=== PATIENT | female | born 1995 | race Caucasian/White ===

== ENCOUNTER 2020-04-16 10:31 | Inpatient (IN) | payer BC ==
[2020-04-16] VITALS (29 sets, daily range): BP systolic 96–145; BP diastolic 53–96; PULSE 68–130; TEMP 97.7–99.1
[~2020-04-16] VITALS: Ht 162.6 cm; Wt 61.4 kg
--- NOTE | 2020-04-16 11:15 | NUR ---
Patient onto unit via bed escorted by to CLERK OF WORKS x2. Patient was seen in ER for pain and spotting, found to be 5cm dilated with a fundal height of 36 per ER physician. on unit, aware of patient. Patients sister Emily at bedside. Patient reports unknown last menstrual period - "It was sometime at the end of the year." Patient states she had positive test "at the end of January." Patient has not been seen for care. Denies any medical complications or surgical history. EFMs on, VS taken. SVE by this RN. Assessment completed. Patient reports good movement. Patient states she started spotting and having pain this morning around 0900, denies any leaking of fluid.
[2020-04-16 11:16] LABS: COLLECTION METHOD CLEAN CATCH
[2020-04-16 11:19] LABS: BASO % 0.2 % (0.0-2.0); EOS # 0.1 (0.0-0.7); EOS % 0.5 % (0-4.0); GRAN # 8.2 (1.4-6.5); GRAN % 79.6 % (42.2-75.2); HEMOGLOBIN 11.2 g/dl (12.5-16.0); LYMPH # 1.5 (1.2-3.4); LYMPH % 14.7 % (20.0-51.0); MEAN CELL VOLUME 80 fl (80.0-100.0); MEAN CORPUSCULAR HEMOGLOBIN 26 pg (27.0-31.0); MEAN CORPUSCULAR HGB CONC 32 g/dl (33.0-37.0); MEAN PLATELET VOLUME 13.4 fl (7.4-10.4); MONO # 0.5 (0.1-0.6); MONO % 4.5 % (1.7-9.3); PLATELET COUNT 161 K/mm3 (130-400); RED BLOOD COUNT 4.38 M/mm3 (4.10-5.30); REDCELL DISTRIBUTION WIDTH-CV 13.3 % (11.5-14.5)
[2020-04-16 11:25] LABS: MUCOUS Present /lpf; PH 7 (5-8); URINE APPEARANCE Hazy; URINE BACTERIA Rare /hpf; URINE BILIRUBIN Negative (NEGATIVE); URINE BLOOD 3+ (NEGATIVE); URINE COLOR Yellow; URINE GLUCOSE Negative (NEGATIVE); URINE KETONE Negative (NEGATIVE); URINE LEUKOCYTE ESTERASE 2+ (NEGATIVE); URINE NITRATE Negative (NEGATIVE); URINE PROTEIN(semi-quant) 2+ (NEGATIVE); URINE UROBILINOGEN Negative (NEGATIVE)
--- NOTE | 2020-04-16 11:25 | NUR ---
to bedside to evaluate patient. SVE /-1, BBOW per provider. Ultrasound verifies vertex position and approximately 36 weeks gestation per provider. Plan of care discussed with patient, questions answered. Patient requesting epidural placement.
--- NOTE | 2020-04-16 12:05 | NUR ---
Report from Otoniel Saldana RN and care of patient assumed. Albania Moreau CRNA at bedside for epidural placement. 1210- Patient assisted to sit on edge of bed for epidural. 1217- Single shot via epidural per Albania Moreau CRNA. Patient tolerates well. 1219- Epidural test dose via Albania Moreau CRNA. Patient tolerates well. No adverse reactions noted. 1225- Patient repositioned LL following epidural placement. Updated on plan of care and safety. 1240- Dr. Garcia on unit, updated on patient assessment.
[2020-04-16 12:10] LABS: TRICYCLIC ANTIDEPRESS URINE NEGATIVE
--- NOTE | 2020-04-16 12:39 | NUR ---
CYNDEE recieved consult for patient with no care at 36 weeks. CYNDEE unable to complete assessment at this time. Patient active LDR. Will schedule to assess 04/17/2020
[2020-04-16 12:59] LABS: HIV 1/2 Antibodies Non-Reactive; HIV-1p24 Antigen Non-Reactive
--- NOTE | 2020-04-16 14:10 | NUR ---
1410- Dr. Garcia at bedside. Discussing possible AROM, patient agrees. 1412- AROM by Dr. Garcia for moderate amount of clear fluid. SVE per provider . Pericare given. Patient updated on plan of care to labor down and recheck when patient feels pressure. Patient repositioned LL.
--- NOTE | 2020-04-16 14:35 | NUR ---
Physician at bedside. Discussing plan of care to begin pushing. Patient denies questions. Barnard catheter removed prior to pushing and pericare performed. 1440- Patient begins pushing with contractions with RN and physician at bedside. 1450- Patient repositioned RL with left leg in stirrup to promote descent. Orders to remain in this position for ten minutes, then LL with stirrup, then sitting upright. Plan to begin pushing again following repositioning efforts. Patient comfortable with epidural.
--- NOTE | 2020-04-16 15:05 | NUR ---
Patient repositioned LL with right leg in stirrup.
--- NOTE | 2020-04-16 15:20 | NUR ---
Patient assisted to sit upright in "tone position". Physician remains on unit.
--- NOTE | 2020-04-16 15:37 | NUR ---
1537- Patient begins to push with RN at bedside. Dr. Garcia on unit.
--- NOTE | 2020-04-16 16:00 | NUR ---
Dr. Garcia at bedside to assess pushing efforts. Patient continues to push with contractions.
--- NOTE | 2020-04-16 16:00 | NUR ---
1600- Dr. Garcia at bedside. Patient continues pushing. 1716- of viable female attended by . to mother's abdomen, care of to Daniel pollock RN. Apgars 06/11/. 1722- Spont. delivery of placenta. Pitocin bolus started at 333 ml/hr/protocol. Fundal massage by RN, firm and on below umbilicus. Second degree perineal laceration repaired by Dr. Garcia. Patient tolerates well. Vaginal bleeding WNL. RR catheterization performed by Dr. Garcia. Pericare given and ice pack applied. Patient updatedon plan of care and safety.
--- NOTE | 2020-04-16 20:40 | NUR ---
1945 PT UP TO BR, TOLERATED WELL. VOIDS 600ML, REVIEWED DEONNA CARE, AND ICE USE, AMBULATED TO RM 207.
[2020-04-17 02:15] VITALS: BP 128/70; PULSE 88; TEMP 98
[2020-04-17 08:15] VITALS: BP 113/77; PULSE 86; TEMP 98.5
--- NOTE | 2020-04-17 11:45 | NUR ---
Central Office Equipment Installer responded to consult as patient did not have any care. 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 Patient reports upon discharge, her mother Dwayne (ph#[phone]) will be picking her up and patient will be moving in with her in [place]. Patient states she took a test in January that was positive and did not follow up for care because she was in denial. Patient states 's father, Ming Quispe (ph#[phone]) was aware of and is planning on being involved. Patient states Ming is also planning on moving back to [place] as well. Patient reports eventually she and Ming hope to move in together. Patient states her mother was not aware of but when she told her yesterday she was very supportive. SW inquired about the lack of care. Patient states she found out in January and was very much in denial about the . Patient does report she was drinking alcohol a few times a month before she found out she was , but stopped drinking as soon as she took the test in January. Patient's UDS was negative upon admission. Patient states her sister, Emily has been here with her and only ran home to take a shower. Patient states her dad, Chilo also lives in [place]. Patient advised she feels supported by her family. SW inquired about needed supplies upon discharge. Patient states her mom and grandmother are going shopping today to obtain everything she needs. Patient states her mom is actually excited about the new baby. Patient reports her mom is a RN and she feels very comfortable returning home with her upon discharge. Patient denies any further questions or concerns. SW collaborated the above information to RNMelissa and Dr. Head.
[2020-04-17 16:06] VITALS: BP 124/76; PULSE 76; TEMP 98.2
[2020-04-18 03:27] LABS: HEPATITIS B SURFACE ANTIGEN Negative (Negative)
[2020-04-18 07:45] VITALS: BP 112/70; PULSE 80; TEMP 98.3
--- NOTE | 2020-04-18 09:15 | NUR ---
Patient calling [facility] to be seen in [address] days[address] with [address] Cat.
[2020-04-18] MEDS ORDERED: IBU800 M1 PO (10:59)
== END 2020-04-18 11:40 | disposition home or self-care (01) | DRG 807 ==
LOC: COL.ER 10:31 → OB 11:39 → LDR 11:39 → OB 20:50
PROVIDERS: Family Medicine; ADMIT Student in an Organized Health Care Education/Training Program
PROC: 10E0XZZ Delivery of Products of Conception, External Approach (ICD-10-PCS; principal; 2020-04-16)
PROC: 0KQM0ZZ Repair Perineum Muscle, Open Approach (ICD-10-PCS; 2020-04-16)
DX: O70.1 Second degree perineal laceration during delivery (principal); Z37.0 Single live birth; Z3A.00 Weeks of gestation of pregnancy not specified
CPT/HCPCS: J2540; J2590; J7120